=== PATIENT | male | born 2000 | race Two or more races ===

== ENCOUNTER 2020-10-23 20:22 | Emergency (ER) | payer SELFPAY ==
[~2020-10-23] VITALS: Ht 185.4 cm; Wt 78.0 kg
[2020-10-23] MEDS ORDERED: LIDOCAINE-MPF 1%, 5ML INFIL ONE (21:30)
[2020-10-23] MEDS ORDERED: DIPH,PERTUSS(ACELL),TET VAC/PF 0.5 ML IM-VACC ONE (21:30)
[2020-10-23] MEDS ORDERED: PLEASE ENTER HEIGHT AND WEIGHT MC SCH (22:00)
[2020-10-23] MEDS ORDERED: PLEASE ENTER ALLERGIES MC SCH (22:00)
[2020-10-23] MEDS ORDERED: LIDOCAINE-MPF 1%, 5ML ONE (22:48)
--- NOTE | 2020-10-23 22:52 | NUR ---
PT C/O OF RIGHT LEG WOUND PT STATES HE WAS RUNNING AT WORK YESTERDAY WHEN HE TRIPPED. HE GOT UP AND NOTICED A WOUND ON LEG. DENIES HEAD INJURY OR LOC. CMS INTACT DISTAL TO INJURY WOUND IS MILDLY BLEEDING CURRENTLY. MED STUDENT AT BEDSIDE PREPARING TO NUMB SURROUNDING AREA. ATTACHED TO MONITORS. BED IN LOW POSITION. RAILS ENGAGED. COUSIN AT BEDSIDE. VSS. ABRAHAM. CHRIS
[2020-10-23] MEDS ORDERED: NEOSPORIN OINT. PKT 1 PACKET ONE (23:39)
[2020-10-24] MEDS ORDERED: DIPH,PERTUSS(ACELL),TET VAC/PF 0.5 ML IM-VACC ONE (00:17)
[2020-10-24 00:27] VITALS: BP 119/72
--- NOTE | 2020-10-24 00:28 | NUR ---
Patient/Caregiver given discharge instructions and they have confirmed that they understand the instructions. Patient ambulatory with steady gait. NAD, all questions answered appropriately, denies additional needs at this time. No personal belongings left in room after discharge.
== END 2020-10-24 00:30 | disposition home or self-care (01) ==
LOC: ED 23:59
DX: S81.811A Laceration without foreign body, right lower leg, initial encounter (principal); W18.30XA Fall on same level, unspecified, initial encounter; Y93.89 Activity, other specified; Y92.69 Other specified industrial and construction area as the place of occurrence of the external cause; Y99.8 Other external cause status
CPT/HCPCS: 12001; 90471; 90715; 99283